=== PATIENT | male | born 1960 ===

== ENCOUNTER 2016-04-07 12:32 | Emergency (ER) | payer BC, OTHER ==
[2016-04-07 13:14] VITALS: BP 128/76
[2016-04-07] MEDS ORDERED: Tetan/Diph/Pertus SYR(Tdap)* 0.5 ML SYR(BOOSTRIX) use SYR IM ONE (13:40)
--- NOTE | 2016-04-07 13:58 | UC ---
Laceration HPI - HPI Summary HPI Summary: WHILE CUTTING ONIONS ONE HOUR AGO, KNIFE SLIPPED AND CUT RIGHT THIRD FINGER TIP AT THE EDGE OF NAIL. TETANUS UNKNOWN - History Of Current Complaint Chief Complaint: UCLaceration Stated Complaint: FINGER LAC Time Seen by Provider: 04/07/16 13:35 Hx Obtained From: Patient Laceration Location: Finger Mechanism Of Injury: Sharp Trauma Onset/Duration: Sudden Onset, Lasting Hours, Still Present Severity: Mild Related History: Dominant Hand Right - Allergies/Home Medications Allergies/Adverse Reactions: Allergies Allergy/AdvReac Type Severity Reaction Status Date / Time Ziprasidone [From Geodon] Allergy Muscle Ache Verified 04/07/16 13:09 Home Medications: Home Medications Lamotrigine [Lamictal] 400 mg PO BEDTIME 04/07/16 [History Confirmed 04/07/16] Ebony Carbonate ER TAB* 900 mg PO BEDTIME 04/07/16 [History Confirmed 04/07/16 ] Zolpidem CR (NF) [Ambien CR (NF)] 04/07/16 [History] PMH/Surg Hx/FS Hx/Imm Hx Previously Healthy: Yes GI/ History Of: Reports: Ulcer - stomach - Surgical History Surgical History: Yes Surgery Procedure, Year, and Place: Knees ACL , shoulder - Family History Known Family History: Negative: Blood Disorder - Social History Occupation: Disabled Lives: With Family Alcohol Use: Weekly Alcohol Amount: 2-3 beers weekly Substance Use Type: None Smoking Status (MU): Never Smoked Tobacco - Immunization History Most Recent Tetanus Shot: >10 years Review of Systems Constitutional: Negative Skin: Other - LACERATION LEFT THIRD FINGER Eyes: Negative ENT: Negative Respiratory: Negative Cardiovascular: Negative Gastrointestinal: Negative Genitourinary: Negative Motor: Negative Neurovascular: Negative Musculoskeletal: Negative Neurological: Negative Psychological: Negative All Other Systems Reviewed And Are Negative: Yes Physical Exam Triage Information Reviewed: Yes Appearance: Well-Appearing, No Pain Distress, Well-Nourished Vital Signs: Initial Vital Signs Temp 98.8 F 04/07/16 13:05 Pulse 55 04/07/16 13:05 Resp 16 04/07/16 13:05 BP 128/76 04/07/16 13:05 Pulse Ox 97 04/07/16 13:05 Vital Signs Reviewed: Yes Eye Exam: Normal Eyes: Positive: Conjunctiva Clear ENT Exam: Normal ENT: Positive: Normal ENT inspection, Hearing grossly normal, Pharynx normal, TMs normal Dental Exam: Normal Neck exam: Normal Neck: Positive: Supple, Nontender Respiratory Exam: Normal Respiratory: Positive: Chest non-tender, Lungs clear, Normal breath sounds, No respiratory distress Cardiovascular Exam: Normal Cardiovascular: Positive: RRR, No Murmur, Pulses Normal Abdominal Exam: Normal Abdomen Description: Positive: Nontender, No Organomegaly Musculoskeletal Exam: Normal Neurological Exam: Normal Psychological Exam: Normal Skin: Positive: Other - LACERATION LEFT FOURTH FINGER Laceration Repair - Laceration Repair 1 Laceration Size After Repair: Length (cm) - 1, Width (mm) - 2, Depth (mm) - 2 Modified For Repair: No Closure Material: Skin Adhesive, SteriStrips Laceration Course/Dx - Differential Dx - Laceration/Wound Differental Diagnoses: Laceration Provider Diagnoses: LACERATION LEFT THIRD FINGER. TETANUS PROPHYLAXIS Discharge - Discharge Plan Condition: Stable Disposition: HOME Patient Education Materials: Finger Laceration (ED), Skin Adhesive Care (ED), Steristrips (ED) Referrals: Karis Zaragoza MD [Primary Care Provider] - Images Hands: 1 - LACERATION HERE
== END 2016-04-07 13:55 | disposition home or self-care (01) ==
LOC: UCEAST 12:32
DX: S61.213A Laceration without foreign body of left middle finger without damage to nail, initial encounter (principal); W26.0XXA Contact with knife, initial encounter; Y93.G1 Activity, food preparation and clean up; Y92.9 Unspecified place or not applicable; Z23 Encounter for immunization
CPT/HCPCS: 90715; 99212; G0463

== ENCOUNTER 2019-05-26 14:10 | Emergency (ER) | payer BC, OTHER ==
[2019-05-26 17:39] VITALS: BP 150/85
--- NOTE | 2019-05-26 18:06 | UC ---
FLU HPI - HPI Summary HPI Summary: 58 year old male presents with complaints of onset of nasal congestion and dry cough 4 days ago. States the following day symptoms became more severe and he developed malaise, body aches, fatigue, and sore throat. No measured fever but reports chills. No recent travel or contact with persons isolated for or diagnosed with COVID-19. Denies ear pain, dysphagia, chest pain, SOB, abdominal pain, nausea, or vomiting. - History of Current Complaint Chief Complaint: UCRespiratory Stated Complaint: COUGH,HEADACHE,ACHES Time Seen by Provider: 05/26/19 17:47 Hx Obtained From: Patient Pain Intensity: 6 - Allergy/Home Medications Allergies/Adverse Reactions: Allergies Allergy/AdvReac Type Severity Reaction Status Date / Time ziprasidone [From Fran] Allergy Muscle Ache Verified 05/26/19 17:40 Home Medications: Home Medications Lamotrigine [Lamictal] 400 mg PO BEDTIME 04/07/16 [History Confirmed 05/26/19] Gholson Carbonate ER TAB* 900 mg PO BEDTIME 04/07/16 [History Confirmed 05/26/19 ] PMH/Surg Hx/FS Hx/Imm Hx Psychological History: Bipolar Disorder - Surgical History Surgical History: Yes Surgery Procedure, Year, and Place: Knees ACL , shoulder - Family History Known Family History: Negative: Blood Disorder - Social History Occupation: Unemployed Lives: With Family Alcohol Use: Weekly Alcohol Amount: 2-3 beers weekly Substance Use Type: None Smoking Status (MU): Never Smoked Tobacco - Immunization History Most Recent Tetanus Shot: >10 years Review of Systems All Other Systems Reviewed And Are Negative: Yes Constitutional: Positive: Chills, Fatigue. Negative: Fever Skin: Negative: Rash Eyes: Negative: Drainage, Eye Redness ENT: Positive: Sore Throat, Nasal Discharge, Sinus Congestion. Negative: Ear Ache, Sinus Pain/Tenderness Respiratory: Positive: Cough. Negative: Shortness Of Breath Cardiovascular: Negative: Chest Pain Gastrointestinal: Negative: Abdominal Pain, Vomiting, Diarrhea, Nausea Genitourinary: Positive: Negative Musculoskeletal: Positive: Myalgia Neurological/Mental Status: Positive: Negative Is Patient Immunocompromised?: No Physical Exam - Summary Physical Exam Summary: GENERAL APPEARANCE: Alert and cooperative older adult male who appears to be in no acute distress. EYES: Conjunctiva clear. No drainage. EARS: External auditory canals and tympanic membranes clear, hearing grossly intact. NOSE: Mild nasal congestion. No nasal discharge. THROAT: Pharyngeal erythema without tonsilar inflammation, swelling, exudate, or lesions. Uvula midline. NECK: Neck supple, non-tender without lymphadenopathy. CARDIAC: Normal S1 and S2. No S3, S4 or murmurs. Rhythm is regular. There is no peripheral edema, cyanosis or pallor. Extremities are warm and well perfused. Capillary refill is less than 2 seconds. Peripheral pulses intact. LUNGS: Clear to auscultation without rales, rhonchi, wheezing or diminished breath sounds. Dry, non-productive cough. ABDOMEN: Positive bowel sounds. Soft, nondistended, nontender. No guarding or rebound. No masses or hepatosplenomegally. MUSKULOSKELETAL: ROM intact to all extremities. No joint erythema or tenderness. Normal muscular development. Normal gait. SKIN: Skin normal color, texture and turgor with no lesions or eruptions. Triage Information Reviewed: Yes Vital Signs: Initial Vital Signs Temp 98.8 F 05/26/19 17:37 Pulse 69 05/26/19 17:37 Resp 16 05/26/19 17:37 BP 150/85 05/26/19 17:37 Pulse Ox 100 05/26/19 17:37 Vital Signs Reviewed: Yes Flu Course/Dx - Course Course Of Treatment: 58 year old male presents with complaints of onset of nasal congestion and dry cough 4 days ago. States the following day symptoms became more severe and he developed malaise, body aches, fatigue, and sore throat. No measured fever but reports chills. No recent travel or contact with persons isolated for or diagnosed with COVID-19. Denies ear pain, dysphagia, chest pain, SOB, abdominal pain, nausea, or vomiting. Afebrile. Hypertensive otherwise vital signs stable. Patient had mild nasal congestion, normal TMs, pharyngeal erythema without tonsillar swelling or exudate, no cervical lymphadenopathy, clear bilateral breath sounds, dry nonproductive cough, and otherwise unremarkable exam. Rapid strep test was negative. Rapid flu test was negative. Reviewed results with the patient and I'm recommending symptomatic treatment for a viral upper respiratory infection with cough. He is to follow-up with his primary care provider in 3-5 days if symptoms persist. Ambulatory guidance and warning symptoms reviewed with the patient. Verbalizes understanding and agrees with plan of care. - Differential Dx/Diagnosis Differential Diagnosis/HQI/PQRI: Bronchitis, Influenza, Pneumonia, Upper Respiratory Infection, Other - Viral syndrome Provider Diagnosis: Upper respiratory infection with cough and congestion Discharge ED - Sign-Out/Discharge Documenting (check all that apply): Patient Departure All imaging exams completed and their final reports reviewed: No Studies - Discharge Plan Condition: Stable Disposition: HOME Patient Education Materials: Upper Respiratory Infection (ED) Referrals: Karis Zaragoza MD [Primary Care Provider] - Additional Instructions: The rapid strep test and rapid flu test performed in the [facility] were negative. Your history and exam are consistent with a viral upper respiratory infection. Viral infections do not respond to antibiotics and are limited to the treatment of symptoms. Viral infections typically run their course in 7-10 days. Drink plenty of fluids to avoid dehydration especially if you are running any fever. Use a saline rinse kit such as Neti Pot or NeilMed at least twice a day to help thin secretions and promote drainage of the sinuses. Use fluticasone (Flonase) nasal spray 2 sprays each nostril once daily. Take over the counter acetaminophen (Tylenol) or ibuprofen (Advil, Motrin) according to directions as needed for pain or fever. Use salt water gargles several times a day if you have a sore throat. You may also use Chloraseptic spray or Cepacol lonzenges according to directions which contain a numbing medication and can provide some temporary relief from your sore throat. Follow up with your primary care provider in 3-5 days if symptoms persist. Seek immediate medical attention in the emergency room if you have fever greater than 100.5 F despite taking acetaminophen or ibuprofen, have chest pain , difficulty breathing, are unable to swallow, or have any worsening of symptoms. - Billing Disposition and Condition Condition: STABLE Disposition: Home
[2019-05-26 18:57] LABS: Influenza A Molecular Negative (Negative); Influenza B Molecular Negative (Negative)
== END 2019-05-26 19:05 | disposition home or self-care (01) ==
LOC: UCEAST 14:10
DX: J06.9 Acute upper respiratory infection, unspecified (principal); R05 Cough; R09.81 Nasal congestion; F31.9 Bipolar disorder, unspecified; R53.83 Other fatigue; M79.10 Myalgia, unspecified site; Z79.899 Other long term (current) drug therapy; Z88.8 Allergy status to other drugs, medicaments and biological substances
CPT/HCPCS: 87651; 99211; G0463